=== PATIENT | female | born 1975 | race Caucasian/White ===

== ENCOUNTER 2022-01-28 17:21 | Emergency (ER) | payer OTHER, SELFPAY ==
[2022-01-28] VITALS (8 sets, daily range): BP systolic 146–179; BP diastolic 65–82; PULSE 61–87; RESP 22; TEMP 36.9; O2SAT 96–100
--- NOTE | 2022-01-28 17:27 | DI.RAD.S_ITS ---
PROCEDURE: XR ANKLE RT MIN 3V INDICATIONS: pain/swelling after fall TECHNIQUE: Three views of the ankle were acquired. COMPARISON: None. FINDINGS: Bones: No fractures or dislocations. Ankle mortise is normally aligned. Tiny plantar calcaneal spur and mild enthesopathy at the Achilles insertion. No suspicious bony lesions. Soft tissues: No tibiotalar joint effusion. Achilles tendon appears normal. Mild lateral periarticular soft tissue swelling. IMPRESSION: 1. No visible fracture. 2. Lateral soft tissue swelling suggestive of sprain. Dictated by: Giulia Prather M.D. on 01/28/2022 at 19:19 Approved by: Giulia Prather M.D. on 01/28/2022 at 19:20
--- NOTE | 2022-01-28 17:27 | DI.RAD.S_ITS ---
PROCEDURE: XR FOOT RT MIN 3V INDICATIONS: pain/swelling after fall TECHNIQUE: Three views of the foot were acquired. COMPARISON: None. FINDINGS: Bones: No fractures or dislocations. No suspicious bony lesions. Mild degenerative spurring and subcortical cystic change at the 5th MTP joint. Soft tissues: No tibiotalar joint effusion. Achilles tendon appears normal. IMPRESSION: 1. No fractures. 2. Incidental note made of degenerative appearing changes at the 5th MTP joint Dictated by: Giulia Prather M.D. on 01/28/2022 at 19:20 Approved by: Giulia Prather M.D. on 01/28/2022 at 19:21
--- NOTE | 2022-01-28 18:02 | ED_ITS ---
HPI - Extremity Injury (Lower) <Vishal Maradiaga PA-C - Last Filed: 01/28/22 19:52> General Chief Complaint: Extremity Injury, Lower Stated Complaint: rt foot pain Time Seen by Provider: 01/28/22 18:01 Source: patient Mode of arrival: Ambulatory History of Present Illness HPI Narrative: Patient presents to the ED complaining of right foot and ankle pain. She states that she fell at work yesterday and has had progressive swelling. She is able to bear weight however it is extremely painful symptoms have not improved over the last day as result she presents to be evaluated. Related Data Home Medications Medication Instructions Recorded Confirmed divalproex 500 mg tablet,delayed 500 mg PO BID #0 10/30/11 release (Depakote) sertraline 50 mg tablet (Zoloft) 50 mg PO DAILY #0 10/30/11 Allergies Allergy/AdvReac Type Severity Reaction Status Date / Time morphine Allergy Intermediate Rash Verified 01/28/22 17:52 Review of Systems <Vishal Maradiaga PA-C - Last Filed: 01/28/22 19:52> Review of Systems ROS Unobtainable: All systems reviewed & are unremarkable except as noted in HPI and below Constitutional Constitutional: Denies chills, Denies fatigue, Denies fever(s), Denies frequent falls, Denies lethargy and Denies weakness Eyes Eyes: Denies change in vision, Denies eye discharge, Denies irritation and Denies loss of vision ENT Ears, Nose, Mouth, and Throat: Denies change in voice, Denies dizziness, Denies neck pain, Denies sore throat and Denies throat swelling Cardiovascular Cardiovascular: Denies chest pain, Denies irregular heart rhythm, Denies lightheadedness, Denies palpitations, Denies dyspnea, Denies dyspnea on exertion and Denies orthopnea Respiratory Respiratory: Denies cough, Denies dyspnea, Denies dyspnea on exertion and Denies wheezing Gastrointestinal Gastrointestinal: Denies abdominal pain, Denies change in bowel habits, Denies diarrhea, Denies nausea and Denies vomiting Genitourinary Genitourinary: Denies hematuria, Denies flank pain, Denies urinary incontinence and Denies urinary urgency Musculoskeletal Musculoskeletal: Denies back pain, Reports arthralgias, Denies muscle weakness, Denies neck pain, Denies numbness and Denies tingling Integumentary/Breasts Skin/Breast: Denies pruritus, Denies erythema, Denies rash and Denies wounds Neurologic Neurologic: Denies behavioral changes, Denies confusion, Denies dizziness, Denies frequent falls, Denies loss of vision, Denies numbness, Denies tingling and Denies weakness Psychiatric Psychiatric: Denies anxiety, Denies behavioral changes, Denies confusion, Denies depression, Denies homicidal ideation and Denies suicidal ideation Endocrine Endocrine: Denies fatigue, Denies flushing and Denies palpitations Hematologic/Lymphatic Hematologic/Lymphatic: Denies easy bruising Allergic/Immunologic Allergic/Immunologic: Denies urticaria, Denies throat swelling and Denies wheezing Patient History <Vishal Maradiaga PA-C - Last Filed: 01/28/22 19:52> Social History Smoking Status: Never smoker Smoking Status: Never smoker alcohol intake frequency: 0-2 drinks per day Exam <Vishal Maradiaga PA-C - Last Filed: 01/28/22 19:52> Initial Vital Signs Initial Vital Signs: Vital Signs Temperature 98.5 F 01/28/22 17:24 Pulse Rate 78 01/28/22 17:24 Respiratory Rate 22 01/28/22 17:24 Blood Pressure 150/80 H 01/28/22 17:24 Pulse Oximetry 100 01/28/22 17:24 Extrem Right lower extremity: edema Details: non-pitting and foot Details: ecchymosis (top of right foot) Other: Ankle shows no evidence of instability <Carolynn Borrero DO - Last Filed: 01/29/22 01:41> Initial Vital Signs Initial Vital Signs: Vital Signs Temperature 98.5 F 01/28/22 17:24 Pulse Rate 78 01/28/22 17:24 Respiratory Rate 22 01/28/22 17:24 Blood Pressure 150/80 H 01/28/22 17:24 Pulse Oximetry 100 01/28/22 17:24 Course <Vishal Maradiaga PA-C - Last Filed: 01/28/22 19:52> Orders Ordered: ED Orders 01/28/22 17:27 XR ankle RT min 3V Stat XR foot RT min 3V Stat Vital Signs Vital signs: Vital Signs - 8 hr 01/28/22 17:53 01/28/22 17:55 01/28/22 18:00 Pulse Rate 82 87 70 Blood Pressure 179/82 H 166/65 H Pulse Oximetry 100 96 98 01/28/22 18:30 01/28/22 19:00 01/28/22 19:30 Pulse Rate 66 63 65 Blood Pressure 169/77 H 164/74 H Pulse Oximetry 98 100 99 01/28/22 19:31 Pulse Rate 61 Blood Pressure 146/73 H Pulse Oximetry 100 <Carolynn Borrero DO - Last Filed: 01/29/22 01:41> Orders Ordered: ED Orders 01/28/22 17:27 XR ankle RT min 3V Stat XR foot RT min 3V Stat Vital Signs Vital signs: Vital Signs - 8 hr 01/28/22 17:53 01/28/22 17:55 01/28/22 18:00 Pulse Rate 82 87 70 Blood Pressure 179/82 H 166/65 H Pulse Oximetry 100 96 98 01/28/22 18:30 01/28/22 19:00 01/28/22 19:30 Pulse Rate 66 63 65 Blood Pressure 169/77 H 164/74 H Pulse Oximetry 98 100 99 01/28/22 19:31 Pulse Rate 61 Blood Pressure 146/73 H Pulse Oximetry 100 MDM - Extremity Injury (Lower) <Vishal Maradiaga PA-C - Last Filed: 01/28/22 19:52> Differential Diagnosis Differential diagnosis: Likely ankle sprain and strain Imaging Data Extremity x-ray #1: Radiologist's Impression: PROCEDURE:? XR FOOT RT MIN 3V ? INDICATIONS:? pain/swelling after fall ? TECHNIQUE:? Three views of the foot were acquired.? ? COMPARISON:? None. ? FINDINGS:? ? Bones:? No fractures or dislocations.? No suspicious bony lesions.? Mild degenerative spurring and subcortical cystic change at the 5th MTP joint. ? Soft tissues:? No tibiotalar joint effusion.? Achilles tendon appears normal.? ? ? IMPRESSION:? ? 1. No fractures. ? 2. Incidental note made of degenerative appearing changes at the 5th MTP joint ? ? Dictated by: Giulia Prather M.D. on 01/28/2022 at 19:20 ? ? Approved by: Giulia Prather M.D. on 01/28/2022 at 19:21?? Extremity x-ray #2: Radiologist's Impression: PROCEDURE:? XR ANKLE RT MIN 3V ? INDICATIONS:? pain/swelling after fall ? TECHNIQUE:? Three views of the ankle were acquired.? ? COMPARISON:? None. ? FINDINGS:? ? Bones:? No fractures or dislocations.? Ankle mortise is normally aligned.? Tiny plantar calcaneal spur and mild enthesopathy at the Achilles insertion.? No suspicious bony lesions.? ? Soft tissues:? No tibiotalar joint effusion.? Achilles tendon appears normal.? M ild lateral periarticular soft tissue swelling. ? ? IMPRESSION:? ? 1. No visible fracture. ? 2.? Lateral soft tissue swelling suggestive of sprain. ? Dictated by: Giulia Prather M.D. on 01/28/2022 at 19:19 ? ? Approved by: Giulia Prather M.D. on 01/28/2022 at 19:20?? MDM Narrative Medical decision making narrative: Patient was evaluated for right ankle pain today. She reports that while she was at work she rolled her ankle and fell and has had swelling and pain since then. She has had difficulty with ambulation and no improvement in her symptoms. X-rays do not show any evidence of any fracture and suggestive of a ankle sprain which is consistent with her symptoms. A air splint will be given and she will be discharged home if she continues to have symptoms she should follow-up with installation specialist for further evaluation or she can return to the emergency room for any further concerns. Discharge Plan Departure Patient Disposition: Home Clinical Impression: Ankle sprain and strain Instructions: DI for Ankle Sprain Activity Restrictions/Additional Instructions: Limit your activity for the next day or 2 based on your level of pain. With walking I would recommend you use the stirrup air splint for support. Keep the ankle elevated above the heart and you can apply ice to 3 times a day to help with swelling and pain. He can take ibuprofen 800 mg every 6-8 hours as needed for pain if there is no improvement in your symptoms beyond 7-10 days I would recommend that you follow-up with an installation specialist for further evaluation or he can return to the emergency room if he need to. Prescriptions: No Action divalproex [Depakote] 500 MG tablet,delayed release (DR/EC) 500 mg PO BID Qty: 0 0RF sertraline [Zoloft] 50 MG tablet 50 mg PO DAILY Qty: 0 0RF Stand Alone Forms: Work Release Note <Carolynn Borrero, DO - Last Filed: 01/29/22 01:41> Cosign ED Attending Cosignature Attestation: I was immediately available in the department for consultation. Documentation has been reviewed.
== END 2022-01-28 20:08 | disposition home or self-care (01) ==
PROVIDERS: Emergency Provider Physician Assistant
DX: S93.401A Sprain of unspecified ligament of right ankle, initial encounter (principal); X50.1XXA Overexertion from prolonged static or awkward postures, initial encounter
CPT/HCPCS: 29540; 73610; 73630; 99281; 99283

== ENCOUNTER → 2023-02-05 07:34 | Outpatient (CLI) | payer OTHER, SELFPAY ==
--- NOTE | 2023-02-05 | PATH_ITS ---
Note [facility] Accession Number: [id number] TESTS RESULT FLAG UNITS REF RANGE LAB Clinician Provided Cytology Information No. of containers..01 Other (Miscellaneous) Source: LEFT SUBMANDIBULAR AREA MASS SUPERIOR NECK DIAGNOSIS: LEFT SUBMANDIBULAR AREA MASS SUPERIOR NECK INCONCLUSIVE. 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 THE SPECIMEN CONSISTS OF A PREDOMINANT POPULATION OF CELLS WITH SCANT CYTOPLASM AND A BASALOID MORPHOLOGY. COMMENT: As part of routine quality control associate, this case was also reviewed by Dr. Kuhn, who agrees with the interpretation. Pathologist ICD10: D37.032 Signed out by: Funmilayo Howell MD, Pathologist NPI- [id number] Performed by: Jairon Casey, [employer] ([facility]) Gross description: 25 CC, PINK, CLEAR RECIEVED: IN CYTOLYT WITH BLUE CAP CONTAINER.VO /VDU 02/06/2023 1051 Local FLAG LEGEND: L-Low Normal,H-High Normal,LL-Alert Low,HH-Alert High <-Panic Low,>-Panic High,A-Abnormal,AA-Critical Abnormal Performed at: 01 =Z [facility] [address], [place] [address] Peyman Grimes MD, Performed at: 01 [facility] [address] [place] [address] [address], [place], [place] [id number] MD Peyman Grimes MD Phone: [phone]
--- NOTE | 2023-02-05 | DI.US.S_ITS ---
PROCEDURE: US FINE NEEDLE ASPIRATION INDICATIONS: LEFT SUBMANDIBULAR AREA MASS - SUPERIOR NECK. TECHNIQUE: The indications, alternatives, benefits, risks, and complications of the procedure were explained to the patient. Written informed consent was obtained and placed in the chart. The area of interest was examined sonographically and a site was chosen for ultrasound guided percutaneous sampling. The skin was prepared and draped in the usual fashion, and anesthetized with 1% lidocaine infiltrated from the skin down to the lesion. Multiple passes were then performed, with contents emptied into an appropriate pathology specimen container. A bandage was applied to the area of access at completion of the study. COMPARISON: [facility], , CT NECK WITH CONTRAST, 01/23/2023, 9:37. [facility], , US SOFT TISSUE HEAD OR NECK, 01/07/2023, 6:53. FINDINGS: Location(s) of lesion(s) sampled: Left submandibular area mass Sims: 25 gauge hypodermic needles. Number of passes: 6 Medications: 1% lidocaine for local anaesthesia. Complications: None. IMPRESSION: Successful ultrasound-guided fine needle aspiration biopsy of a left submandibular area mass, with cytology results pending. Dictated by: Clifton Walton M.D. on 02/05/2023 at 15:39 Approved by: Clifton Walton M.D. on 02/05/2023 at 15:40
== END ==
PROVIDERS: PCP Student in an Organized Health Care Education/Training Program; Referring Provider Student in an Organized Health Care Education/Training Program; Visit Provider Student in an Organized Health Care Education/Training Program
DX: R22.1 Localized swelling, mass and lump, neck (principal)
CPT/HCPCS: 10005

== ENCOUNTER 2023-05-28 06:41 | Day surgery (SDC) | payer OTHER, SELFPAY ==
[2023-05-22 07:35] VITALS: BMI 48.4
[2023-05-28] VITALS (7 sets, daily range): BP systolic 124–139; BP diastolic 68–87; PULSE 71–94; RESP 12–18; TEMP 36.2–36.3; O2SAT 94–97; BMI 48.4
--- NOTE | 2023-05-28 | PATH_ITS ---
[facility] Accession Number: [id number] No. of containers..01 Tissue . 01 Material submitted: . parotid gland - LEFT PAROTID MASS . 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 Negative for malignancy. MRV 06/03/2023 1646 Local . 01 Comment: [employer] slides of this case are also reviewed by Dr. Reba Skinner, who concurs with the given interpretation. . 01 Electronically signed: . Danielle Ford MD, Pathologist NPI- [id number] . 01 Gross description: . The specimen is received in formalin labeled with the patient's name, , and left parotid mass, and consists of an unoriented catalan, nodular soft tissue fragment measuring 3.1 x 2.0 x 1.4 cm and weighing 5 g. The specimen is unoriented, and the external surface is inked blue. The specimen is serially sectioned into nine slices to reveal a pink-catalan, homogenous, soft cut surface. The specimen is submitted entirely in cassettes A1-A6 with the first and last slices perpendicularly sectioned. ([id number]) /FRR 05/30/2023 1611 Local . 01 Pathologist provided ICD-10: R22.1, D11.0 . 01 CPT . 071382 Specimen Comment: A courtesy copy of this report has been sent to [phone] Performed at: 01 [facility] [address] [place] [address] [address] [facility] [address], [place], [place] [id number] MD Peyman Grimes MD Phone: [phone]
[2023-05-28] MEDS: LACTATED RINGERS 1,000 ML 84 ML IV (07:30)
--- NOTE | 2023-05-28 07:38 | PM.PREOP ---
Pre-operative Note Interval Note History & Physical reviewed/Exam performed by Physician: Yes Changes to H&P: No
--- NOTE | 2023-05-28 07:39 | PM.HP.1 ---
History of Present Illness History of Present Illness Date Patient Seen: 05/28/23 Time Patient Seen: 07:39 Chief complaint: [place] Narrative: 48-year-old female last seen in clinic 03/25/2023 for left parotid mass presents for left parotidectomy with facial nerve monitoring, possible facial nerve dissection. FNA 02/05 was inconclusive but favored to be benign. No interval health changes, wishes to proceed. She experienced rash with morphine in the past, no issues with oxycodone. Following discussion of the material risks benefits complications and alternatives, she elected to proceed. [facility] Medical History Bipolar disorder BMI 45.0-49.9, adult Mass of left parotid gland Neck mass Surgical History History of tonsillectomy and adenoidectomy (2010) Hx of cholecystectomy (02/2010) Hx of tubal ligation (2000) Social History household members: spouse Smoking Status: Never smoker alcohol intake: former Meds Home Medications and Allergies Home Medications Medication Instructions Recorded Confirmed Type divalproex 500 mg tablet,delayed 500 mg PO BID ##0 10/30/11 05/28/23 History release (Depakote) sertraline 50 mg tablet (Zoloft) 50 mg PO DAILY ##0 10/30/11 05/28/23 History Allergies Allergy/AdvReac Type Severity Reaction Status Date / Time morphine Allergy Intermediate Rash Verified 05/28/23 07:32 Review of Systems Review of Systems Narrative: Negative except as listed in the HPI Exam Vital Signs (past 8 hours): - 05/28/23 07:21 Temperature 97.1 F L Pulse Rate 71 Respiratory Rate 18 Blood Pressure 137/83 Pulse Oximetry 96 Oxygen Delivery Method Room Air Oxygen Delivery Method Room Air Narrative Exam Narrative: Well-developed elevated BMI, heart regular rate and rhythm without murmur, lungs clear to auscultation bilaterally. Stable 2-3 cm mobile left parotid tail mass Assessment & Plan Assessment & Plan narrative: Assessment: Left parotid mass Plan: Following discussion of the material risks benefits complications and alternatives, the patient elected to proceed.
--- NOTE | 2023-05-28 08:17 | SUR.OPER ---
Supine on padded OR bed, head on gel donut and elevated using a wedge, arms secured on padded arm boards at <90 degrees abduction, arms elevated on stacked blankets, legs uncrossed, safety belt at thigh, tape over blanket over lower legs.
[2023-05-28] MEDS: LIDOCAINE 1% 20 ML, EPINEPHrine 0.2 MG INJ (08:22)
[2023-05-28] MEDS: BACITRACIN OINT 0.9 GM PCKT 1 APPLIC TOP (08:36)
--- NOTE | 2023-05-28 08:56 | PM.OP.1 ---
Operative Date/Time/Diagnoses Date of procedure: 05/28/23 Time of procedure: 08:56 Pre-op diagnosis: Left parotid mass Post-op diagnosis: same Procedure & Clinicians Procedure: 1. Left partial parotidectomy without facial nerve dissection 2. Facial nerve EMG Same procedure as scheduled: Yes Indications: 48-year-old female with left parotid mass presents for excision with facial nerve monitoring. Following discussion of the material risks benefits complications and alternatives, she elected to proceed. Surgeon: Devendra Simon Call Center Recruiter: Gustabo Mario Anesthesia Type: General and Local Operative Notes Findings: 2.5 cm firm well-circumscribed mass left parotid tail. No facial nerve dissection required, no visualization of the marginal mandibular nerve but a few brief episodes of inadvertent stimulation. Specimen(s): other (Left parotid mass) Estimated Blood Loss (mL): 5 Procedure in detail: Following identification and confirmation of consent, as well as the left side of lesion, the patient was brought to the operating room suite and placed in the supine position. General endotracheal anesthesia was administered. Head was turned to the right and table was turned left side out. A submandibular incision 2 fingerbreadths inferior to the angle of the mandible was marked in ink, due to the far anterior and inferior location of the mass. This was widely infiltrated with 1% lidocaine 1 100,000 epinephrine. Facial nerve EMG electrodes were placed and monitored throughout the case by the electronic service technician. Following sterile prep and drape, the skin and subcutaneous tissue was incised with a 15 blade and I dissected through the platysma near the inferior border of the mass. Sharp and blunt dissection proceeded to the inferior border of the mass and eventually completely around it, with a few brief episodes of facial nerve stimulation. No visible nerve branches, no significant vessels identified. The wound was irrigated with Betadine copiously and the cavity was closed with interrupted 4-0 chromic followed by closure of the platysma and then the subcutaneous tissue in separate layers. Five 0 running nylon closed the skin followed by antibiotic ointment and a dressing. Sponge and needle counts were correct. She tolerated the procedure well without known complication and was extubated in the operating room and taken to recovery room in stable condition. The surgical services coordinator was necessary due to the potential for injury to the facial nerve. Complications: none Post-operative Condition: stable Disposition: same day surgery Plan for aftercare: Ice to the incision as tolerated 24-48 hours, if the dressing falls off, keep the incision covered with Vaseline or Polysporin at all times. Tylenol and Advil for pain control, oxycodone only if necessary. Follow-up as scheduled 1 week for suture removal.
[2023-05-28] MEDS: OXYCODONE IR 5 MG TABLET PO (09:14)
== END 2023-05-28 09:56 | disposition home or self-care (01) ==
PROVIDERS: PCP Student in an Organized Health Care Education/Training Program; Referring Provider Otolaryngology; Visit Provider Otolaryngology
PROC: (CPT 42410; principal; 2023-05-28 07:45)
DX: D11.0 Benign neoplasm of parotid gland (principal); R22.1 Localized swelling, mass and lump, neck
CPT/HCPCS: 42410; J0171; J0330; J1100; J2250; J2405; J2704; J3010; J3490

== ENCOUNTER 2025-09-22 22:45 | Emergency (ER) | payer OTHER, SELFPAY ==
[2025-09-22 22:48] VITALS: BP 156/76; PULSE 77; RESP 16; TEMP 36.7; O2SAT 99; BMI 42.2
--- NOTE | 2025-09-22 22:51 | DI.RAD.S_ITS ---
PROCEDURE: XR KNEE RT 3V
[2025-09-22 22:56] VITALS: BP 149/72; PULSE 74; O2SAT 97
[2025-09-22 23:00] VITALS: BP 142/64; PULSE 69; O2SAT 97
--- NOTE | 2025-09-22 23:19 | ED_ITS ---
HPI - Extremity Injury (Lower)
--- NOTE | 2025-09-22 23:19 | ED.LOWEXIN ---
HPI - Extremity Injury (Lower) General Chief Complaint: Extremity Injury, Lower Stated Complaint: Knee popped and fell Time Seen by Provider: 09/22/25 23:19 Source: patient Mode of arrival: Wheelchair History of Present Illness HPI Narrative: 50-year-old female without any significant past medical history comes into the ED from home for evaluation of right knee pain, she states that she was dancing and she felt a pop and fell onto the ground, states he has been unable to bear weight ever since then. States it is painful, otherwise denies any other symptoms at this time. She states that she was doing a spinning move and then felt a pop in went onto her knee. She denies any other injuries at this time. Not on any blood thinners denies any numbness weakness tingling to the lower extremities. Related Data Home Medications ?Medication ?Instructions ?Recorded ?Confirmed divalproex 500 mg tablet,delayed 500 mg PO BID ##0 10/30/11 05/28/23 release (Depakote) sertraline 50 mg tablet (Zoloft) 50 mg PO DAILY ##0 10/30/11 05/28/23 Previous Rx's ?Medication ?Instructions ?Recorded ondansetron 4 mg disintegrating 4 mg PO Q8H PRN nausea and 09/22/25 tablet vomiting 5 days #15 tabs oxycodone-acetaminophen 5 mg-325 1 tab PO Q8H PRN pain 3 days #9 09/22/25 mg tablet (Percocet) tabs Allergies Allergy/AdvReac Type Severity Reaction Status Date / Time morphine Allergy Intermediate Rash Verified 09/22/25 22:48 Review of Systems Review of Systems Narrative: General: Denies fever, chills, weight loss HEENT: Denies headache, eye drainage, eye irritation, head trauma, sore throat, voice change Cardiovascular: Denies any chest pain, palpitations, tachycardia Respiratory: Denies any shortness of breath, cough, wheeze, stridor GI/: Denies any abdominal pain, nausea, vomiting, diarrhea, bright red blood per rectum, melanotic stools, urinary frequency, urinary retention, dysuria, hematuria MSK: Positive right knee pain Skin: Denies any rashes, lesions, discoloration Neuro: Denies any headache, lightheadedness, dizziness, fainting, weakness Psych: Denies SI/HI Patient History Medical History Bipolar disorder BMI 45.0-49.9, adult Mass of left parotid gland Neck mass Surgical History History of tonsillectomy and adenoidectomy (2010) Hx of cholecystectomy (02/2010) Hx of tubal ligation (2000) Social History household members: spouse Smoking Status: Never smoker alcohol intake: former Smoking Status: Never smoker alcohol intake frequency: 0-2 drinks per day Exam Narrative Exam Narrative: General: Cooperative, well-developed, not in acute distress HEENT: Normocephalic, atraumatic, PERRLA, normal sclera, eyelids normal Neck: Active full range of motion, atraumatic Chest: Normal to inspection, negative crepitus, no overlying erythema ecchymosis Respiratory: Normal respiratory effort, not in acute respiratory distress, clear to auscultation bilaterally negative cough, wheeze, tachypnea, rhonchi, rales Cardiology: Regular rate rhythm negative gallop, murmur, rubs GI/: No tenderness to palpation, soft, non rigid, normal to inspection, exam deferred MSK: Patient with decreased active passive range of motion of the right knee, however there is no other tenderness to palpation of any bony prominences, no overlying erythema, neurovascularly intact otherwise Skin: No rashes or lesions noted Neuro: Alert awake oriented x3, moves all 4 extremities spontaneously, cranial nerves intact, able to answer all questions appropriately follows commands appropriately Psych: Cooperative, negative suicidal or homicidal ideations Initial Vital Signs Initial Vital Signs: Vital Signs Temperature 98.0 F 09/22/25 22:48 Pulse Rate 77 09/22/25 22:48 Respiratory Rate 16 09/22/25 22:48 Blood Pressure 156/76 H 09/22/25 22:48 Pulse Oximetry 99 09/22/25 22:48 Oxygen Delivery Method Room Air 09/22/25 22:48 Course Orders Ordered: ED Orders 09/22/25 22:51 XR knee RT 3V Stat Vital Signs Vital signs: Vital Signs - 8 hr 09/22/25 22:48 09/22/25 22:56 09/22/25 22:56 Temperature 98.0 F Pulse Rate 77 74 Respiratory Rate 16 Blood Pressure 156/76 H 149/72 H Pulse Oximetry 99 97 Oxygen Delivery Method Room Air MDM - Extremity Injury (Lower) MDM Narrative Medical decision making narrative: 50-year-old female without any significant past medical history comes into the ED from home for evaluation of right knee pain, she states that at around 9:00 p.m. she was dancing was doing a spin motion felt a pop and then landed onto her knee. Unable to stand bear weight immediately after the event. She denies any other injuries no head strike no LOC not on any blood thinners. On my exam she has some tenderness to palpation of the knee decreased active passive range of motion secondary to pain but otherwise neurovascularly intact. X-ray did not show any fracture or dislocation but does show patellar enthesopathy with mild supra patellar effusion, patient will be placed in a knee immobilizer crutches sent home with symptomatic relief and instructed follow up with Orthopedic surgery in outpatient setting. She verbalized understanding agrees to being discharged home with outpatient follow up Discharge Plan Departure Patient Disposition: Home Clinical Impression: Acute pain of right knee Instructions: DI for Knee Pain Activity Restrictions/Additional Instructions: Please follow up with Orthopedic surgery in outpatient setting, Please be nonweightbearing to your right knee Please read the discharge instructions sheet carefully and bring all papers to all doctor follow-up visits, as it may contain information that your doctor may want to see. Disease processes change and evolve, if your symptoms worsen or if you develop any new symptoms that are concerning to you please return for evaluation. Your evaluation today does not show any evidence of any life-threatening/serious illnesses requiring admission to the hospital or surgery. Please follow-up with your doctor for re-evaluation in approximately 1 day. Seek immediate medical attention for any worrisome symptoms. *If you do not have a primary care provider please contact the [facility] Resource line at [phone]. They will ask some questions about your medical history and help get you set up with a doctor in the community. Prescriptions: New oxycodone-acetaminophen [Percocet] 5-325 mg tablet 1 tab PO Q8H PRN (Reason: pain) 3 Days Qty: 9 0RF ondansetron 4 mg tablet,disintegrating 4 mg PO Q8H PRN (Reason: nausea and vomiting) 5 Days Qty: 15 0RF No Action divalproex [Depakote] 500 MG tablet,delayed release (DR/EC) 500 mg PO BID Qty: 0 sertraline [Zoloft] 50 MG tablet 50 mg PO DAILY Qty: 0 Referrals: Angel Luis Urban PA-C [Primary Care Provider, Medical] Stand Alone Forms: Patient Portal/API
[2025-09-22 23:30] VITALS: BP 142/76; PULSE 66; O2SAT 96
[2025-09-23] VITALS: BP 148/77; PULSE 64; O2SAT 97
== END 2025-09-23 00:29 | disposition home or self-care (01) ==
PROVIDERS: Emergency Provider Student in an Organized Health Care Education/Training Program; PCP Student in an Organized Health Care Education/Training Program
DX: M25.561 Pain in right knee (principal); W18.30XA Fall on same level, unspecified, initial encounter; Y93.41 Activity, dancing
CPT/HCPCS: 73562; 99283

== ENCOUNTER → 2025-09-29 19:29 | Outpatient (CLI) | payer OTHER, SELFPAY ==
--- NOTE | 2025-09-29 19:30 | DI.MRI.S_ITS ---
PROCEDURE: MR KNEE RT WO CON INDICATIONS: r/o ligament tear, knee pain TECHNIQUE: Noncontrast sagittal PD fast spin echo and T2 fast spin echo with fat saturation, sagittal 3-D FLASH with fat saturation; coronal T1 spin echo and PD fast spin echo with fat saturation, and axial PD fast spin echo with fat saturation through the knee. COMPARISON: [facility], CR, XR KNEE RT 3V, 09/22/2025, 22:50. FINDINGS: Image quality: Diagnostic. Menisci: Medial meniscal body free edge blunting in fraying. Synovitis and scarring of the meniscocapsular meniscal tibial ligaments at the posterior horn body junction of the medial meniscus without acute tear. Medial meniscus posterior root incomplete radial tear. The lateral meniscus is intact. Ligaments: The ACL is intact. The PCL is intact. The MCL is intact. The LCL is intact. The posterolateral supporting structures are intact. Mild sprain of the posterior medial corner. Extensor Mechanism: Quadriceps tendon is intact. The patellar tendon is intact. The patellar retinacula are intact. Osseous Structures: There is no fracture or dislocation. No suspicious marrow replacing process. Small knee joint effusion. Hoffa's fat pad is unremarkable. Articular Cartilage: Patellofemoral compartment: Mesial medial patellar facet and medial patellar ridge partial-thickness articular cartilage thinning and fraying, grade 2-3. Relatively preserved trochlear articular cartilage. Medial compartment: Superficial articular cartilage thinning and fraying without full-thickness, high-grade defect. Lateral compartment: Cartilage of the lateral tibiofemoral compartment is intact. Other: Mild sprain of the semimembranosus and posterior medial corner. Tiny Silva's cyst. Mild medial tibial collateral bursitis. Normal neurovascular signal. Mild prepatellar bursitis IMPRESSION: 1. Medial meniscus posterior root incomplete radial tear with mild sprain of the posterior medial corner. 2. Moderate chondromalacia of the patella. 3. Mild prepatellar bursitis. Dictated by: Estevan Pal M.D. on 10/02/2025 at 11:11 Approved by: Estevan Pal M.D. on 10/02/2025 at 11:21
== END ==
PROVIDERS: PCP Student in an Organized Health Care Education/Training Program; Referring Provider Orthopaedic Surgery; Visit Provider Orthopaedic Surgery
DX: S83.241A Other tear of medial meniscus, current injury, right knee, initial encounter (principal); M25.461 Effusion, right knee; M22.41 Chondromalacia patellae, right knee; M71.561 Other bursitis, not elsewhere classified, right knee; M25.561 Pain in right knee
CPT/HCPCS: 73721